=== PATIENT | female | born 1970 ===

== ENCOUNTER 2021-10-23 06:52 | Emergency (ER) | payer MEDICARE ==
--- NOTE | 2021-10-23 07:49 | Emergency Department Report ---
HPI - General Chief Complaint: Urogenital-Female Time Seen by Provider: 10/23/21 07:37 - HPI HPI: Room 20 Patient is a 51-year-old female presenting with a chief complaint of inability to urinate. The patient is currently at [facility] for depression. Patient states she has suprapubic pressure but cannot urinate. Patient states last time she urinated was approximately 2 to 3 days ago. Patient also states she has not had a bowel movement for past 8 days. Patient denies having the urge to defecate but states she has not been eating a lot lately. Patient complains of some suprapubic pressure. ED Past Medical Hx - Past Medical History Hx Hypertension: Yes Hx Diabetes: Yes Hx Psychiatric Treatment: Yes (ADHD) Additional medical history: Hyperlipidemia - Surgical History Hx Cholecystectomy: Yes Additional Surgical History: Hemorrhoidectomy - Family History Family history: no significant - Social History Smoking Status: Never Smoker Substance Use Type: None (Denies illicit drug use) - Medications Home Medications: Home Medications Medication Instructions Recorded Confirmed Last Taken Type Sulfamethoxazole/Trimethoprim 1 each PO BID #14 10/23/21 Unknown Rx [Bactrim DS TAB] ED Review of Systems ROS: Stated complaint: DIFF URINATING Other details as noted in HPI Constitutional: no symptoms reported Eyes: denies: eye pain ENT: denies: throat pain Respiratory: no symptoms reported Cardiovascular: denies: chest pain Endocrine: no symptoms reported Gastrointestinal: abdominal pain. denies: vomiting Genitourinary: other (Inability to urinate) Musculoskeletal: denies: back pain Neurological: denies: headache Physical Exam - Physical Exam Vital Signs: Vital Signs 10/23/21 07:31 Temperature 98.1 F Pulse Rate 76 Respiratory 16 Rate Blood Pressure 130/86 [Left] O2 Sat by Pulse 98 Oximetry Physical Exam: GENERAL: The patient is well-developed well-nourished female lying on stretcher not appearing to be in acute distress. [] HEENT: Normocephalic. Atraumatic. Extraocular motions are intact. Patient has moist mucous membranes. NECK: Supple. Trachea midline CHEST/LUNGS: Clear to auscultation. There is no respiratory distress noted. HEART/CARDIOVASCULAR: Regular. There is no tachycardia. There is no gallop rub or murmur. ABDOMEN: Abdomen is soft, without rebound or guarding. There is no suprapubic fullness appreciated but patient complains of mild discomfort to the suprapubic region with palpation. Patient has normal bowel sounds. There is no abdominal distention. SKIN: There is no rash. There is no edema. There is no diaphoresis. NEURO: The patient is awake, alert, and oriented. The patient is cooperative. The patient has no focal neurologic deficits. The patient has normal speech. GCS 15 MUSCULOSKELETAL: There is no evidence of acute injury. ED Course Vital Signs 10/23/21 07:31 Temperature 98.1 F Pulse Rate 76 Respiratory 16 Rate Blood Pressure 130/86 [Left] O2 Sat by Pulse 98 Oximetry ED Medical Decision Making - Lab Data Result diagrams: 10/23/21 10:39 10/23/21 10:39 - Radiology Data Radiology results: report reviewed (2 view abdominal x-ray), image reviewed (2 view abdominal x-ray) interpreted by me: 2 view abdominal x-ray-no free air, nonobstructive bowel pattern [facility] [address] [place] [address] XRay Report Signed Patient: MAGI PETERSON MR#: [id number] 6 : 1970 Acct:[id number] Age/Sex: 51 / F ADM Date: 10/23/21 Loc: ED Attending Dr: Ordering Physician: CECE YANG MD Date of Service: 10/23/21 Procedure(s): XR abdomen 2V Accession Number(s): [id number] cc: CECE YANG MD Fluoro Time In Minutes: ABDOMEN 3 VIEW(S) INDICATION / CLINICAL INFORMATION: Constipation. COMPARISON: None available. FINDINGS: TUBES / LINES: None. BOWEL GAS PATTERN: No significant abnormality. FREE AIR / EXTRALUMINAL GAS: None seen. ADDITIONAL F INDINGS: No significant additional findings. IMPRESSION: 1. No significant abnormality. Signer Name: Valdemar Marlow MD Signed: 10/23/2021 9:02 AM Workstation Name: [id number] Transcribed By: SILVESTRE Dictated By: Valdemar Mralow MD Electronically Authenticated By: Valdemar Marlow MD Signed Date/T marisa: 10/23/21901 DD/ 1 TD/TT: Print Cancel - Differential Diagnosis Urinary retention, constipation, UTI Critical care attestation.: If time is entered above; I have spent that time in minutes in the direct care of this critically ill patient, excluding procedure time. ED Disposition Clinical Impression: Urinary retention, UTI (urinary tract infection) Disposition: [address] [place] [address] Is pt being admited?: No Does the pt Need Aspirin: No Condition: Stable Instructions: Acute Urinary Retention, Female, Urinary Tract Infection, Adult, [id number] Additional Instructions: Return to the emergency department should you develop worsening symptoms, inability to tolerate food or liquids, high fever or any other concerns Prescriptions: Sulfamethoxazole/Trimethoprim [Bactrim DS TAB] 1 each PO BID #14 Referrals: PRIMARY CARE, [Primary Care Provider] - 3-5 Days IVANNA YUSUF MD [Staff Physician] - 3-5 Days (Dr. Yusuf is a urologist. Please follow-up with him for further evaluation) Time of Disposition: 13:04
--- NOTE | 2021-10-23 09:06 | XRay Report ---
ABDOMEN 3 VIEW(S) INDICATION / CLINICAL INFORMATION: Constipation. COMPARISON: None available. FINDINGS: TUBES / LINES: None. BOWEL GAS PATTERN: No significant abnormality. FREE AIR / EXTRALUMINAL GAS: None seen. ADDITIONAL FINDINGS: No significant additional findings. IMPRESSION: 1. No significant abnormality. Signer Name: Valdemar Marlow MD Signed: 10/23/2021 9:02 AM Workstation Name: [id number]
[2021-10-23 09:15] LABS: Bacteria,Urine 3+ /HPF (Negative); Mucus,Urine 3+ /HPF
[2021-10-23 09:55] LABS: Color,Urine Yellow (Yellow)
[2021-10-23 09:56] LABS: Bilirubin,Urine Moderate (Negative); Blood,Urine Negative (Negative); Urobilinogen,Urine < 2.0 mg/dL (<2.0)
[2021-10-23 09:57] LABS: Ictotest,Urine Positive (Negative)
[2021-10-23] MEDS ORDERED: SODIUM CHLORIDE 0.9% 1000 ML 1,000 ML ONE (10:02)
[2021-10-23 11:36] LABS: Basophils # (Auto) 0.1 K/mm3 (0.0-0.1); Basophils % (Auto) 0.8 % (0.0-1.8); Eosinophils # (Auto) 0.3 K/mm3 (0.0-0.4); Eosinophils % (Auto) 3.5 % (0.0-4.3); Hematocrit 39.6 % (30.3-42.9); Hemoglobin 13.5 gm/dl (10.1-14.3); Lymphocytes # (Auto) 2.4 K/mm3 (1.2-5.4); Lymphocytes % (Auto) 27.6 % (13.4-35.0); Mean Corpuscular HGB Conc 34 % (30-34); Mean Corpuscular Volume 80 fl (79-97); Monocytes # (Auto) 0.5 K/mm3 (0.0-0.8); Platelet Count 185 K/mm3 (140-440); Red Blood Count 4.92 M/mm3 (3.65-5.03)
[2021-10-23 12:57] LABS: BUN/Creatinine Ratio 25; Blood Urea Nitrogen 20 mg/dL (7-17); Calcium 9.2 mg/dL (8.4-10.2); Hemolysis Index 2
[2021-10-23 19:43] VITALS: BP 105/66
== END 2021-10-23 22:30 ==
LOC: ED 06:52
DX: N39.0 Urinary tract infection, site not specified (principal); R33.9 Retention of urine, unspecified; I10 Essential (primary) hypertension; E11.9 Type 2 diabetes mellitus without complications; F90.9 Attention-deficit hyperactivity disorder, unspecified type; E78.5 Hyperlipidemia, unspecified; Z98.890 Other specified postprocedural states
CPT/HCPCS: 36415; 74019; 80048; 81001; 85025; 99284; J7030

== ENCOUNTER 2021-10-24 07:12 | Emergency (ER) | payer MEDICARE ==
[2021-10-24 07:23] VITALS: BP 184/83
--- NOTE | 2021-10-24 11:50 | Emergency Department Report ---
ED General Adult HPI - General Chief complaint: Medical Clearance Stated complaint: CANNOT HAVE CATH AT [facility] Time Seen by Provider: 10/24/21 07:43 Source: EMS, old records reviewed Mode of arrival: Stretcher Limitations: No Limitations - History of Present Illness Initial comments: 51-year-old female presents from [facility] after her 1013 was rescinded. Patient apparently was seen here yesterday for urinary retention. Patient had lab work, Perdomo catheter placement, and was subsequently discharged on antibiotics for UTI. Patient was sent back to the ER because they "cannot handle or care for her Perdomo". They sent her here to the ED instead of discharging her home with family. Patient complains of a stinging pain at area of Perdomo catheter but denies abdominal pain, fever, nausea, or vomiting. Severity scale (0 -10): 0 - Related Data Previous Rx's Medication Instructions Recorded Last Taken Type Sulfamethoxazole/Trimethoprim 1 each PO BID #14 10/23/21 Unknown Rx [Bactrim DS TAB] cefUROXime [Ceftin] 500 mg PO Q12H 14 Days 10/24/21 Unknown Rx Allergies Allergy/AdvReac Type Severity Reaction Status Date / Time codeine Allergy Unknown Verified 10/24/21 07:23 duloxetine Allergy Unknown Verified 10/24/21 07:23 metoclopramide [From Reglan] Allergy Unknown Verified 10/24/21 07:23 ED Review of Systems ROS: Stated complaint: CANNOT HAVE CATH AT [facility] Other details as noted in HPI Comment: All other systems reviewed and negative ED Past Medical Hx - Past Medical History Hx Hypertension: Yes Hx Diabetes: Yes Hx Psychiatric Treatment: Yes (ADHD) Additional medical history: Hyperlipidemia - Surgical History Hx Cholecystectomy: Yes Additional Surgical History: Hemorrhoidectomy - Social History Smoking Status: Never Smoker Substance Use Type: None (Denies illicit drug use) - Medications Home Medications: Home Medications Medication Instructions Recorded Confirmed Last Taken Type Sulfamethoxazole/Trimethoprim 1 each PO BID #14 10/23/21 Unknown Rx [Bactrim DS TAB] cefUROXime [Ceftin] 500 mg PO Q12H 14 Days 10/24/21 Unknown Rx ED Physical Exam - General Limitations: No Limitations - Other Other exam information: General: No acute distress Head: Atraumatic Eyes: normal appearance ENT: Moist mucous membranes Neck: Normal appearance, no midline tenderness Chest: Clear to auscultation bilaterally CV: Regular rate and rhythm Abdomen: Soft, normal bowel sounds, nontender, nondistended, no rebound or guarding, Perdomo catheter with leg bag with yellow nonbloody urine drainage Back: Normal inspection Extremity: Normal inspection, full range of motion Neuro: Alert O x 3, no facial asymmetry, speech clear, no gross motor sensory deficit Psych: Appropriate behavior, flat affect Skin: No rash ED Course Vital Signs 10/24/21 07:16 Temperature 98.4 F Pulse Rate 69 Respiratory 16 Rate Blood Pressure 184/83 [Left] O2 Sat by Pulse 98 Oximetry ED Medical Decision Making - Medical Decision Making 51-year-old female presents to the hospital without any acute medical issue. Patient was seen here yesterday for urinary retention and started on antibiotics for UTI. She was placed on Bactrim by her previous provider. I provided 1 dose of Ceftin here in the ED. Patient's labs and UA results from yesterday reviewed. Patient has already been instructed to follow-up with urologist. Patient was inappropriately sent here to the ER instead of discharge home. Nurse has contacted patient's who lives 3 [address] away[address] will drive here to pick her up to take her home it is unclear if pt has her recent prescription for bactrim. I will prescribed Ceftin Critical Care Time: No Critical care attestation.: If time is entered above; I have spent that time in minutes in the direct care of this critically ill patient, excluding procedure time. ED Disposition Clinical Impression: Urinary retention, UTI (urinary tract infection) Disposition: 01 HOME / SELF CARE / HOMELESS Is pt being admited?: No Does the pt Need Aspirin: No Condition: Stable Instructions: Indwelling Urinary Catheter Care, Adult, [id number] Additional Instructions: Take the medication as prescribed. You may take Motrin or Tylenol as needed for pain. follow-up with your doctor or doctor/clinic provided. Return if symptoms worsen as indicated by your discharge instructions. Prescriptions: cefUROXime [Ceftin] 500 mg PO Q12H 14 Days Referrals: PRIMARY CAREMD [Primary Care Provider] - 3-5 Days IVANNA CHAPMAN MD [Staff Physician] - 3-5 Days (Urologist) Time of Disposition: 11:54
== END 2021-10-24 15:12 | disposition home or self-care (01) ==
LOC: ED 07:12
DX: R33.9 Retention of urine, unspecified (principal); N39.0 Urinary tract infection, site not specified; I10 Essential (primary) hypertension; E11.9 Type 2 diabetes mellitus without complications; Z88.6 Allergy status to analgesic agent
CPT/HCPCS: 99283